=== PATIENT | male | born 1940 | race Caucasian/White ===

== ENCOUNTER → 2016-07-19 | Outpatient (CLI) | payer MEDICARE, OTHER ==
--- NOTE | ~2016-07-19 | 2DMMODE ---
[facility] [employer] [place] [address] 2 D/M-MODE ECHOCARDIOGRAM Name: BENSON ZULUAGA Room #: REG CL [facility]#: [id number] Admission: 07/19/16 Attend Phys: Radames Arcos MD Discharge: Date of : 42 Date of Service: 07/19/16 1422 Report #: [id number] THIS REPORT FOR: //name// Transthoracic Echocardiography Ordering physician: Radames Arcos MD Referring physician: Juan Campbell MD Parts Lister: LILIAM Alford Indications/History: CAD. BP: 138 / HR: 61bpm Height: 70in Weight: 197.6lb 80 Study data: M-mode, complete 2D, complete spectral Doppler, and color Doppler. Location: Echo laboratory. Routine. Image quality was good. 2D measurements Normal Normal LVID ED 46.2mm 36-57 IVS ED 15.3mm 6-11 LVID ES 32.4mm 23-40 LVPW ED 14.8mm 6-11 LA volume 33ml/m2 16-28 AoRoot diam 35.3mm 21-37 index ED LVOT diameter 18-23 Findings: Left ventricle: The cavity size was normal. Wall thickness was increased in a pattern of mild LVH. Systolic function was normal. The estimated ejection fraction was in the range of 55% to 60%. Wall motion was normal. Right ventricle: The cavity size was normal. Systolic function was normal. Right atrium: The atrium was mildly dilated. Left atrium: The atrium was mildly dilated. Volume index: 33ml/m2 (S). Aortic valve: Trileaflet; mildly calcified leaflets. Doppler: There was no stenosis. No regurgitation. Peak velocity: 143.6cm/s (S). [address] [address] 2 D/M-MODE ECHOCARDIOGRAM Name: BENSON ZULUAGA Room #: REG [facility]#: [id number] Admission: 07/19/16 Attend Phys: Radames Arcos MD Discharge: Date of : 42 Date of Service: 07/19/16 1422 Report #: [id number] Mitral valve: Mildly calcified annulus. Doppler: There was no evidence for stenosis. Trivial regurgitation. Peak E-wave velocity: 72.9cm/s. Peak gradient: 2.1mm Hg (D). Peak A-wave velocity: 87.5cm/s. Tricuspid valve: Structurally normal valve. Doppler: There was no evidence for stenosis. Trivial regurgitation. Regurgitant peak velocity: 245cm/s. Peak RV-RA gradient: 24mm Hg (S). Pulmonic valve: Structurally normal valve. Doppler: There was no evidence for stenosis. No regurgitation. Pericardium: There was no pericardial effusion. Aorta: Aortic root: The aortic root was normal in size. Pulmonary artery: Systolic pressure was estimated to be 29mm Hg. Diastolic function: Doppler parameters are consistent with abnormal left ventricular relaxation (grade 1 diastolic dysfunction). Systemic veins: Inferior vena cava: The vessel was normal in size; the respirophasic diameter changes were in the normal range (= 50%). Conclusions 1. Left ventricle: The cavity size was normal. Wall thickness was increased in a pattern of mild LVH. Systolic function was normal. The estimated ejection fraction was in the range of 55% to 60%. 2. Right atrium: The atrium was mildly dilated. 3. Left atrium: The atrium was mildly dilated. 4. Aortic valve: Trileaflet; mildly calcified leaflets. There was no stenosis. 5. Mitral valve: Mildly calcified annulus. Trivial regurgitation. 6. Tricuspid valve: Trivial regurgitation. 7. Pericardium, extracardiac: There was no pericardial effusion. <ELECTRONICALLY SIGNED> By: Radames Arcos MD 07/19/16 1601 1422 160 Radames Arcos MD /darryl
== END ==
LOC: CV 10:09
DX: I25.10 Atherosclerotic heart disease of native coronary artery without angina pectoris (principal)

== ENCOUNTER → 2017-07-29 | Outpatient (CLI) | payer MEDICARE ==
--- NOTE | ~2017-07-29 | 2DMMODE ---
[facility] [address] [place] [address] 2 D/M-MODE ECHOCARDIOGRAM Name: BENSON ZULUAGA Room #: REG [facility]#: [id number] Admission: 07/29/17 Attend Phys: Radames Arcos MD Discharge: Date of : 42 Date of Service: 07/29/17 1056 Report #: [id number] THIS REPORT FOR: //name// APPROVED REPORT Study performed: 07/29/2017 10:03:21 EXAM: Comprehensive 2D, Doppler, and color-flow Echocardiogram Patient Location: Out-Patient Room #: Echo lab Status: routine BSA: 2.04 HR: 61 bpm BP: 146/82 mmHg Other Information Study Quality: Adequate Indications CAD 2D Dimensions RVDd: 41.63 mm LVEF(%): 68.67 (>50%) IVSd: 13.21 (7-11mm) LVOT Diam: 18.63 (18-24mm) LVDd: 44.22 mm PWd: 12.65 (7-11mm) Ascending Ao: 35.08 (22-36mm) LVDs: 27.32 (25-40mm) Aortic Root: 36.40 mm IVC: 16.00 mm Gamble's LVEF: 68.67 % Volumes Left Atrial Volume (Systole) Single Plane 4CH: 71.82 mL Single Plane 2CH: 72.06 mL LA ESV Index: 40.00 mL/m2 Aortic Valve AoV Peak Rell.: 1.46 m/s AO Peak Gr.: 8.49 mmHg LVOT Max P.62 mmHg LVOT Max V: 0.95 m/s REG Vmax: 1.78 cm2 Mitral Valve E/A Ratio: 0.6 MV Decel. Time: 311.57 ms MV E Max Rell.: 0.59 m/s [facility] [place] [address] 2 D/M-MODE ECHOCARDIOGRAM Name: ZANBENSON DAVID Room #: REG [facility]#: [id number] Admission: 07/29/17 Attend Phys: Radames Arcos MD Discharge: Date of : 42 Date of Service: 07/29/17 1056 Report #: [id number] MV A Rell.: 1.01 m/s MV PHT: 90.36 ms IVRT: 166.09 ms Pulmonary Valve PV Peak Rell.: 0.79 m/s PV Peak Gr.: 2.50 mmHg MA End Vmax: 1.32 m/s Pulmonary Vein P Vein S: 0.54 m/s P Vein A: 0.26 m/s P Vein D: 0.41 m/s P Vein A Dur.: 101.5 msec P Vein S/D Ratio: 1.32 Tricuspid Valve TR Peak Rell.: 2.50 m/s TR Peak Gr.: 25.02 mmHg PA Pressure: 30.00 mmHg Left Ventricle The left ventricle is normal size. Mild concentric left ventricular hypertrophy. The left ventricular systolic function is normal. The left ventricular ejection fraction is within the normal range. LVEF is 55-60%. Grade I - abnormal relaxation pattern. Right Ventricle Right ventricle is at the upper limits of normal. The right ventricular systolic function is normal. Atria Left atrium is mildly dilated. Right atrium is dilated. Aortic Valve The aortic valve is normal in structure. Aortic valve is calcified. No aortic regurgitation is present. There is no aortic valvular stenosis. Mitral Valve The mitral valve is normal in structure. Mild mitral regurgitation. No evidence of mitral valve stenosis. Tricuspid Valve The tricuspid valve is normal in structure. There is trace tricuspid regurgitation. The right atrial pressure is estimated at mmHg. There is no pulmonary hypertension. Pulmonic Valve [facility] [address] [place] [address] 2 D/M-MODE ECHOCARDIOGRAM Name: BENSON ZULUAGA Room #: REG CL [facility]#: [id number] Admission: 07/29/17 Attend Phys: Radames Arcos MD Discharge: Date of : 42 Date of Service: 07/29/17 1056 Report #: [id number] The pulmonary valve is normal in structure. Trace to mild pulmonic regurgitation. Great Vessels The aortic root is normal in size. IVC is normal in size and collapses >50% with inspiration. Pericardium There is no pericardial effusion. <Conclusion> The left ventricle is normal size. Mild concentric left ventricular hypertrophy. The left ventricular systolic function is normal. Grade I - abnormal relaxation pattern. Right ventricle is at the upper limits of normal. Left atrium is mildly dilated. Aortic valve is calcified. There is no aortic valvular stenosis. Mild mitral regurgitation. <ELECTRONICALLY SIGNED> By: Radames Arcos MD 07/29/17 1056 1056 1056 Radames Arcos MD /INF
== END ==
LOC: CV 09:44
DX: I25.10 Atherosclerotic heart disease of native coronary artery without angina pectoris (principal); I70.0 Atherosclerosis of aorta; I51.7 Cardiomegaly; I34.0 Nonrheumatic mitral (valve) insufficiency

== ENCOUNTER → 2018-02-03 | Outpatient (CLI) | payer MEDICARE | LOC: NUC 07:18 | DX: I25.10 Atherosclerotic heart disease of native coronary artery without angina pectoris (principal); E78.5 Hyperlipidemia, unspecified; I10 Essential (primary) hypertension; Z87.891 Personal history of nicotine dependence ==

== ENCOUNTER → 2019-07-23 | Outpatient (CLI) | payer MEDICARE | END | disposition home or self-care (01) | LOC: SJCVC 06:53 | DX: I08.0 Rheumatic disorders of both mitral and aortic valves (principal); I25.10 Atherosclerotic heart disease of native coronary artery without angina pectoris; R94.31 Abnormal electrocardiogram [ECG] [EKG]; I10 Essential (primary) hypertension; E78.00 Pure hypercholesterolemia, unspecified; K21.9 Gastro-esophageal reflux disease without esophagitis; Z79.82 Long term (current) use of aspirin; Z79.899 Other long term (current) drug therapy; Z90.49 Acquired absence of other specified parts of digestive tract ==

== ENCOUNTER → 2020-01-25 | Outpatient (CLI) | payer MEDICARE | LOC: SJCVCIMAG 08:40 | PROVIDERS: ATTEND Internal Medicine Cardiovascular Disease | DX: I08.0 Rheumatic disorders of both mitral and aortic valves (principal); I25.10 Atherosclerotic heart disease of native coronary artery without angina pectoris; I10 Essential (primary) hypertension; E78.00 Pure hypercholesterolemia, unspecified; G47.33 Obstructive sleep apnea (adult) (pediatric) ==

== ENCOUNTER → 2020-07-28 | Outpatient (CLI) | payer MEDICARE | LOC: SJCVC 13:14 | PROVIDERS: ATTEND Internal Medicine Cardiovascular Disease | DX: I44.0 Atrioventricular block, first degree (principal); I25.10 Atherosclerotic heart disease of native coronary artery without angina pectoris; I10 Essential (primary) hypertension; E78.5 Hyperlipidemia, unspecified; R42 Dizziness and giddiness; G47.33 Obstructive sleep apnea (adult) (pediatric); Z87.891 Personal history of nicotine dependence; Z95.5 Presence of coronary angioplasty implant and graft; Z88.8 Allergy status to other drugs, medicaments and biological substances; Z79.82 Long term (current) use of aspirin; Z79.899 Other long term (current) drug therapy ==

== ENCOUNTER → 2021-01-26 | Outpatient (CLI) | payer MEDICARE | LOC: SJCVC 10:29 | PROVIDERS: ATTEND Internal Medicine Cardiovascular Disease | DX: R94.31 Abnormal electrocardiogram [ECG] [EKG] (principal); I44.0 Atrioventricular block, first degree; I10 Essential (primary) hypertension; I25.10 Atherosclerotic heart disease of native coronary artery without angina pectoris; E78.5 Hyperlipidemia, unspecified; E78.00 Pure hypercholesterolemia, unspecified; R42 Dizziness and giddiness; G47.33 Obstructive sleep apnea (adult) (pediatric); Z95.5 Presence of coronary angioplasty implant and graft; Z90.49 Acquired absence of other specified parts of digestive tract; Z88.8 Allergy status to other drugs, medicaments and biological substances; Z79.82 Long term (current) use of aspirin; Z79.899 Other long term (current) drug therapy; Z87.891 Personal history of nicotine dependence; Z82.49 Family history of ischemic heart disease and other diseases of the circulatory system ==

== ENCOUNTER → 2021-08-01 | Outpatient (CLI) | payer MEDICARE | LOC: SJCVCIMAG 08:51 | PROVIDERS: ATTEND Internal Medicine Cardiovascular Disease | DX: I08.8 Other rheumatic multiple valve diseases (principal); I44.0 Atrioventricular block, first degree; I25.10 Atherosclerotic heart disease of native coronary artery without angina pectoris; I10 Essential (primary) hypertension; E78.5 Hyperlipidemia, unspecified; R42 Dizziness and giddiness; G47.33 Obstructive sleep apnea (adult) (pediatric); Z88.8 Allergy status to other drugs, medicaments and biological substances; Z79.82 Long term (current) use of aspirin; Z79.899 Other long term (current) drug therapy; Z87.891 Personal history of nicotine dependence; Z82.49 Family history of ischemic heart disease and other diseases of the circulatory system ==